=== PATIENT | male | born 1975 | race American Indian/Alaskan Native ===

== ENCOUNTER 2019-06-22 06:45 | Emergency (ER) | payer OTHER ==
[2019-06-22] MEDS ORDERED: KETOROLAC 30 MG/1 ML INJ ONE (07:39)
[2019-06-22] MEDS ORDERED: KETOROLAC 30 MG/1 ML INJ IM ONE (07:45)
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
[2019-06-22 10:36] VITALS: BP 126/48
== END 2019-06-22 10:57 | disposition home or self-care (01) ==
LOC: ED 06:45
DX: S16.1XXA Strain of muscle, fascia and tendon at neck level, initial encounter (principal); S39.012A Strain of muscle, fascia and tendon of lower back, initial encounter; I10 Essential (primary) hypertension; F17.200 Nicotine dependence, unspecified, uncomplicated; Z98.890 Other specified postprocedural states; Z79.899 Other long term (current) drug therapy; V49.59XA Passenger injured in collision with other motor vehicles in traffic accident, initial encounter; Y93.89 Activity, other specified; Y92.410 Unspecified street and highway as the place of occurrence of the external cause; Y99.8 Other external cause status
CPT/HCPCS: 72040; 72100; 96372; 99283; J1885